=== PATIENT | female | born 1970 | race Caucasian/White ===

== ENCOUNTER 2020-05-11 20:13 | Emergency (ER) | payer OTHER ==
[~2020-05-11] VITALS: Ht 165.1 cm; Wt 90.7 kg
[~2020-05-11 20:13] MED LIST: BUPROPION XL300 MG ORAL; DIPHENHYDRAMINE25 M1 ORAL; EPIPEN 2-P0.3 MG/0.3 IM; NEURONTIN800 MG ORAL; NIFEDICAL XL30 MG ORAL; RANITIDINE HCL150 MG ORAL
--- NOTE | 2020-05-11 20:45 | NUR ---
ED Nurse Note: Patient came in the ED complaining of left leg tight sensation, swelling and warmth. Denies any calf area pain, started today.
[2020-05-11 21:05] VITALS: BP 158/98
[2020-05-11 21:28] LABS: APPEARANCE,URINE CLEAR; BILIRUBIN, URINE NEGATIVE (NEGATIVE); COLOR,URINE PALE YELLOW; GLUCOSE, URINE (UA) NEGATIVE (NEGATIVE); KETONES,URINE NEGATIVE (NEGATIVE); LEUKOCYTE ESTERASE ,URINE NEGATIVE (NEGATIVE); NITRITE,URINE NEGATIVE (NEGATIVE); PH,URINE 5 (4.5-8.0); PROTEIN,URINE NEGATIVE (NEGATIVE); UROBILINOGEN,URINE NORMAL MG/DL (0.0-1.0)
[2020-05-11 21:46] VITALS: BP 156/93
[2020-05-11 21:50] LABS: BASOPHILS % (AUTO) 1.4 % (0.0-2.0); EOSINOPHILS % (AUTO) 6.3 % (0.0-3.0); HEMATOCRIT 45.4 % (37.0-47.0); LYMPHOCYTES % (AUTO) 15.5 % (20.0-45.0); MEAN CORPUSCULAR VOLUME 106 FL (80-99); MONOCYTES % (AUTO) 8.3 % (1.0-10.0); NEUTROPHILS % (AUTO) 68.5 % (45.0-75.0); PLATELET COUNT 363 K/UL (150-450); RED CELL DISTRIBUTION WIDTH 12.4 % (11.6-14.8); WHITE BLOOD COUNT 7.3 K/UL (4.8-10.8)
[2020-05-11 21:54] LABS: ANION GAP 10 mmol/L (5-15); BLOOD UREA NITROGEN 9 mg/dL (7-18); CALCIUM 9.4 MG/DL (8.5-10.1); CARBON DIOXIDE 27 MMOL/L (21-32); CHLORIDE 101 MMOL/L (98-107); CREATININE 0.9 MG/DL (0.55-1.30); POTASSIUM 3.7 MMOL/L (3.5-5.1); SODIUM 138 MMOL/L (136-145)
[2020-05-11 22:05] LABS: ALANINE AMINOTRANSFERASE 30 U/L (12-78); ALBUMIN 4.1 G/DL (3.4-5.0); ALBUMIN/GLOBULIN RATIO 0.9 (1.0-2.7); ALKALINE PHOSPHATASE 112 U/L (46-116); ASPARTATE AMINO TRANSFERASE 25 U/L (15-37); BILIRUBIN,TOTAL 0.5 MG/DL (0.2-1.0); CREATINE KINASE 63 U/L (26-308)
--- NOTE | 2020-05-11 22:09 | Emergency Room Report ---
History of Present Illness General Chief Complaint: Edema Source: Patient (Carlos Villalobos MD) Present Illness HPI Patient noticed edema in her left ankle foot and extending up into her calf. She was getting ready to go out for dinner. She denies any pain in that area. There is no prior trauma. She is never noticed this before. She did notice a yesterday or earlier today. She was concerned that this might be evidence of a blood clot and came to the emergency department. This caused her to have quite a bit of anxiety. She has been sitting quite a bit recently. No family history of blood clots. She denies pleuritic chest pain or hemoptysis. There is or chills. No abdominal pain. She believes her last menstruation was about 2 weeks ago. She does not believe she is at this time. The patient has been self isolating at home. She denies exposure to Covid positive contacts. Prior to March 03 she was working at [employer] but stopped because she feels she is in high risk. No fevers, chills, sore throat, chest pain, palpitations, nausea, vomiting, diarrhea, dysuria, abdominal pain, shortness of breath, rashes, visual changes, dizziness, headache. Patient has had multiple allergies. She is feels she is at high risk for Covid. Patient is treated for anxiety. (Carlos Villalobos MD) Allergies: Uncoded Allergies: CAT (Allergy, Unknown, 12/25/15) MOLDS (Allergy, Unknown, 12/25/15) COVID-19 Screening Contact w/high risk pt: No Experienced COVID-19 symptoms?: No COVID-19 Testing performed [employer]: No (Carlos Villalobos MD) Patient History Past Medical History: see triage record, other - Allergies and asthma Social History: Denies: smoking Social History Narrative Self isolating at home since March 03. Prior worked at [employer] Reviewed Nursing Documentation: PMH: Agreed; PSxH: Agreed (Carlos Villalobos MD) Nursing Documentation-PMH Hx Hypertension: Yes History Of Psychiatric Problem: Yes - severe anxiety, on meds. (Carlos Villalobos MD) Review of Systems All Other Systems: negative except mentioned in HPI (Carlos Villalobos MD) Physical Exam Vital Signs Date Time Temp Pulse Resp B/P (MAP) Pulse Ox O2 Delivery O2 Flow Rate FiO2 05/11/20 20:32 98.2 100 18 158/98 (118) 98 Room Air Sp02 EP Interpretation: reviewed, normal General Appearance: well appearing, no apparent distress, GCS 15 Head: normocephalic Eyes: bilateral eye normal inspection, bilateral eye PERRL, bilateral eye EOMI ENT: moist mucus membranes Neck: supple Respiratory: lungs clear, normal breath sounds Cardiovascular #1: regular rate, rhythm, edema - Left lower leg and ankle with foot Cardiovascular #2: 2+ radial (R) Gastrointestinal: normal inspection, normal bowel sounds, non tender, no mass, non-distended Musculoskeletal: back normal, normal range of motion, no calf tenderness, gait/station normal, Charisma's Sign negative Neurologic: alert, oriented x3, grossly normal Psychiatric: anxious Skin: no rash, warm/dry Lymphatic: other - No inguinal adenopathy (Carlos Villalobos MD) Medical Decision Making Diagnostic Impression: Primary Impression: Unilateral edema of lower extremity ER Course Patient presents with nontender unilateral left lower leg edema. Differential includes DVT, edema, angioedema, local circulatory or lymph issues, renal failure amongst others. Evaluation with labs, EKG, chest x-ray and Doppler study. Effort something to treat the anxiety and she declined. EKG normal sinus rhythm with biatrial enlargement and low voltage QRS. Chest x- ray normal. Labs and ultrasound pending. Patient signed out to Dr. Godfrey. Laboratory Tests Test 05/11/20 21:15 05/11/20 21:30 Urine Color Pale yellow Urine Appearance Clear Urine pH 5 (4.5-8.0) Urine Specific [place] 1.010 (1.005-1.035) Urine Protein Negative (NEGATIVE) Urine Glucose (UA) Negative (NEGATIVE) Urine Ketones Negative (NEGATIVE) Urine Blood Negative (NEGATIVE) Urine Nitrite Negative (NEGATIVE) Urine Bilirubin Negative (NEGATIVE) Urine Urobilinogen Normal MG/DL (0.0-1.0) Urine Leukocyte Esterase Negative (NEGATIVE) White Blood Count 7.3 K/UL (4.8-10.8) Red Blood Count 4.30 M/UL (4.20-5.40) Hemoglobin 15.0 G/DL (12.0-16.0) Hematocrit 45.4 % (37.0-47.0) Mean Corpuscular Volume 106 FL (80-99) H Mean Corpuscular Hemoglobin 34.8 PG (27.0-31.0) H Mean Corpuscular Hemoglobin Concent 33.0 G/DL (32.0-36.0) Red Cell Distribution Width 12.4 % (11.6-14.8) Platelet Count 363 K/UL (150-450) Mean Platelet Volume 4.7 FL (6.5-10.1) L Neutrophils (%) (Auto) 68.5 % (45.0-75.0) Lymphocytes (%) (Auto) 15.5 % (20.0-45.0) L Monocytes (%) (Auto) 8.3 % (1.0-10.0) Eosinophils (%) (Auto) 6.3 % (0.0-3.0) H Basophils (%) (Auto) 1.4 % (0.0-2.0) Prothrombin Time 10.7 SEC (9.30-11.50) Prothrombin Time INR 1.0 (0.9-1.1) Activated Partial Thromboplast Time 27 SEC (23-33) Sodium Level 138 MMOL/L (136-145) Potassium Level 3.7 MMOL/L (3.5-5.1) Chloride Level 101 MMOL/L (98-107) Carbon Dioxide Level 27 MMOL/L (21-32) Anion Gap 10 mmol/L (5-15) Blood Urea Nitrogen 9 mg/dL (7-18) Creatinine 0.9 MG/DL (0.55-1.30) Estimated Glomerular Filtration Rate > 60 mL/min (>60) Glucose Level 95 MG/DL (74-106) Calcium Level 9.4 MG/DL (8.5-10.1) Total Bilirubin 0.5 MG/DL (0.2-1.0) Aspartate Amino Transferase (AST) 25 U/L (15-37) Alanine Aminotransferase (ALT) 30 U/L (12-78) Alkaline Phosphatase 112 U/L (46-116) Total Creatine Kinase 63 U/L (26-308) Troponin I 0.000 ng/mL (0.000-0.056) Pro-B-Type Natriuretic Peptide 30 pg/mL (0-125) Total Protein 8.5 G/DL (6.4-8.2) H Albumin 4.1 G/DL (3.4-5.0) Globulin 4.4 g/dL Albumin/Globulin Ratio 0.9 (1.0-2.7) L (Carlos Villalobos MD) ER Course Assumed care of the patient from the previous provider at approximately 2230. Please refer to initial note for full history and physical exam. Briefly, 49-year-old female presenting for evaluation of left lower extremity swelling. Labs have returned within normal limits. At the time of signout duplex study of the lower extremities was pending to evaluate for possible DVT. No DVT identified. Patient stable for outpatient follow-up. Instructed to return new or worsening symptoms. Laboratory Tests Test 05/11/20 21:15 05/11/20 21:30 Urine Color Pale yellow Urine Appearance Clear Urine pH 5 (4.5-8.0) Urine Specific [place] 1.010 (1.005-1.035) Urine Protein Negative (NEGATIVE) Urine Glucose (UA) Negative (NEGATIVE) Urine Ketones Negative (NEGATIVE) Urine Blood Negative (NEGATIVE) Urine Nitrite Negative (NEGATIVE) Urine Bilirubin Negative (NEGATIVE) Urine Urobilinogen Normal MG/DL (0.0-1.0) Urine Leukocyte Esterase Negative (NEGATIVE) White Blood Count 7.3 K/UL (4.8-10.8) Red Blood Count 4.30 M/UL (4.20-5.40) Hemoglobin 15.0 G/DL (12.0-16.0) Hematocrit 45.4 % (37.0-47.0) Mean Corpuscular Volume 106 FL (80-99) H Mean Corpuscular Hemoglobin 34.8 PG (27.0-31.0) H Mean Corpuscular Hemoglobin Concent 33.0 G/DL (32.0-36.0) Red Cell Distribution Width 12.4 % (11.6-14.8) Platelet Count 363 K/UL (150-450) Mean Platelet Volume 4.7 FL (6.5-10.1) L Neutrophils (%) (Auto) 68.5 % (45.0-75.0) Lymphocytes (%) (Auto) 15.5 % (20.0-45.0) L Monocytes (%) (Auto) 8.3 % (1.0-10.0) Eosinophils (%) (Auto) 6.3 % (0.0-3.0) H Basophils (%) (Auto) 1.4 % (0.0-2.0) Prothrombin Time 10.7 SEC (9.30-11.50) Prothrombin Time INR 1.0 (0.9-1.1) Activated Partial Thromboplast Time 27 SEC (23-33) Sodium Level 138 MMOL/L (136-145) Potassium Level 3.7 MMOL/L (3.5-5.1) Chloride Level 101 MMOL/L (98-107) Carbon Dioxide Level 27 MMOL/L (21-32) Anion Gap 10 mmol/L (5-15) Blood Urea Nitrogen 9 mg/dL (7-18) Creatinine 0.9 MG/DL (0.55-1.30) Estimated Glomerular Filtration Rate > 60 mL/min (>60) Glucose Level 95 MG/DL (74-106) Calcium Level 9.4 MG/DL (8.5-10.1) Total Bilirubin 0.5 MG/DL (0.2-1.0) Aspartate Amino Transferase (AST) 25 U/L (15-37) Alanine Aminotransferase (ALT) 30 U/L (12-78) Alkaline Phosphatase 112 U/L (46-116) Total Creatine Kinase 63 U/L (26-308) Troponin I 0.000 ng/mL (0.000-0.056) Pro-B-Type Natriuretic Peptide 30 pg/mL (0-125) Total Protein 8.5 G/DL (6.4-8.2) H Albumin 4.1 G/DL (3.4-5.0) Globulin 4.4 g/dL Albumin/Globulin Ratio 0.9 (1.0-2.7) L (Tino Godfrey MD) EKG Diagnostic Results Rate: normal Rhythm: NSR ST Segments: no acute changes (Carlos Villalobos MD) Rhythm Strip Diag. Results EP Interpretation: yes Rhythm: NSR, no PVC's, no ectopy (Carlos Villalobos MD) Chest X-Ray Diagnostic Results Chest X-Ray Diagnostic Results : Chest X-Ray Ordered: Yes # of Views/Limited/Complete: 1 View Indication: Other EP Interpretation: Yes Interpretation: no consolidation, no effusion, no pneumothorax Impression: No acute disease Electronically Signed by: Electronically signed by Carlos Villalobos MD (Carlos Villalobos MD) Status: improved (Carlos Villalobos MD) Disposition: HOME, SELF-CARE Condition: Stable Scripts Comp.stocking,Thigh,Short,Lrg (T.E.D. ANTI-EMBOLISM STOCKING) 1 Each Each EACH MC DAILY, #1 2 Refills Prov: Carlos Villalobos MD 05/11/20 Referrals: NON PHYSICIAN (PCP) Carlos Villalobos MD May 11, 2020 22:09 Tino Godfrey MD May 11, 2020 22:35
[2020-05-11] MEDS ORDERED: T.E.D. ANTI-EM1 EA10 MC (22:31)
--- NOTE | 2020-05-11 22:45 | Diagnostic Imaging Report ---
INDICATION: Swelling COMPARISON: None FINDINGS: Single frontal view demonstrates a normal cardiomediastinal silhouette. The lungs are clear. No pleural effusions. The visualized osseous structures are within normal limits. IMPRESSION: No acute cardiopulmonary disease.
--- NOTE | 2020-05-11 22:57 | NUR ---
ER DISCHARGE NOTE: Patient is cleared to be discharged per ERMD, pt is aox4, on room air, with stable vital signs. pt was given dc instructions, pt was able to verbalize understanding, pt id band and iv site removed without complications. pt is able to ambulate with steady gait. pt took all belongings.
--- NOTE | 2020-05-11 23:09 | Diagnostic Imaging Report ---
INDICATION: Pain, swelling TECHNIQUE: Real-time sonographic imaging of the bilateral common femoral, superficial femoral and popliteal veins is performed utilizing intermittent compression. The study is supplemented with color flow imaging and duplex Doppler during spontaneous flow, Valsalva and calf augmentation. COMPARISON: FINDINGS: Normal compressibility is demonstrated from the common femoral vein to the popliteal vein bilaterally. There is normal response to Valsalva and augmentation. Normal spontaneous phasic flow is noted. IMPRESSION: No evidence of deep venous thrombosis.
--- NOTE | 2020-05-12 12:25 | Cardiology Report ---
APPROVED REPORT EKG Measurement Heart [id number] <Conclusion> Normal sinus rhythm Biatrial enlargement Low voltage QRS Abnormal ECG
== END 2020-05-11 22:57 | disposition home or self-care (01) ==
LOC: EMR 20:55
DX: R60.0 Localized edema (principal); I10 Essential (primary) hypertension; F41.9 Anxiety disorder, unspecified; Z79.899 Other long term (current) drug therapy; Z91.09 Other allergy status, other than to drugs and biological substances
CPT/HCPCS: 36415; 71045; 80053; 81003; 82550; 83880; 84484; 85025; 85610; 85730; 93005; 93970; Z7502; 99284